=== PATIENT | female | born 1960 | race Caucasian/White ===

== ENCOUNTER 2020-05-29 01:38 | Emergency (ER) | payer OTHER ==
[~2020-05-29] VITALS: Ht 154.9 cm; Wt 68.0 kg
[2020-05-29] MEDS ORDERED: ABILIFY 5 MG TAB5 MG PO (02:11)
[2020-05-29] MEDS ORDERED: ASPIR-TRIN325 MG PO (02:12)
[2020-05-29] MEDS ORDERED: BUSPAR30 MG PO (02:12)
[2020-05-29] MEDS ORDERED: PROZAC20 M1 PO (02:13)
[2020-05-29] MEDS ORDERED: LAMICTAL25 MG PO (02:14)
[2020-05-29] MEDS ORDERED: CLONAZEPAM 0.50.5 M1 PO (02:14)
[2020-05-29] MEDS ORDERED: NEURONTIN 400400 M1 PO ×2 (02:15)
[2020-05-29] MEDS ORDERED: IBUPROFEN 400400 M2 PO (02:15)
[2020-05-29] MEDS ORDERED: NORCO 10-325 T1 EACH PO (02:15)
[2020-05-29] MEDS ORDERED: TRAMADOL 50 MG50 MG PO (02:16)
[2020-05-29] MEDS ORDERED: PROPRANOLOL 1010 MG (02:16)
[2020-05-29] MEDS ORDERED: VISTARIL50 MG PO (02:18)
[2020-05-29 06:38] VITALS: BP 127/105
== END 2020-05-29 06:38 ==
LOC: ER 01:38
DX: R41.0 Disorientation, unspecified (principal); Z20.828 Contact with and (suspected) exposure to other viral communicable diseases; Z79.899 Other long term (current) drug therapy; Z79.82 Long term (current) use of aspirin

== ENCOUNTER 2020-05-29 06:29 | Inpatient (IN) | payer OTHER ==
[~2020-05-29] VITALS: Ht 157.5 cm; Wt 67.1 kg
[~2020-05-29 06:29] MED LIST: ABILIFY 5 MG TAB5 MG PO; ASPIR-TRIN325 MG PO; BUSPAR30 MG PO; CLONAZEPAM 0.50.5 M1 PO; IBUPROFEN 400400 M2 PO; LAMICTAL25 MG PO; NEURONTIN 400400 M1 PO; NORCO 10-325 T1 EACH PO; PROPRANOLOL 1010 MG; PROZAC20 M1 PO; TRAMADOL 50 MG50 MG PO; VISTARIL50 MG PO
[2020-05-29 06:51] VITALS: BP 140/78
--- NOTE | 2020-05-29 06:52 | NUR ---
Patient arrived to the unit from [facility] ED at 0632. Patient alert and oriented x3. Suspicious affect. Denies SI/HI/AH/VH. Patient impulsive, appears confused. Poor short term memory. Oriented to room and unit. Denies pain and discomfort. Vital signs assessed and height/weight. Patient arrived with several trash bags of personal belongings. Patient also has several belongings locked up at [facility]. Patient lived with significant other for several years and most recently in a hotel. Significant other was admitted to [facility] hospital 05/27/20 then to [facility] on 05/28/20. During that time, this patient was [facility] from [facility] and has been homeless. Patient was picked up by PD, wandering along the road, displaying s/s of dementia and delirium on 05/27/20. ATC evaluated patient and recommended inpatient psych. Patient was then sent to [facility] for geriatric psych admission but they did not have bed availability or accept her insurance. Accepted to this unit by HODAN Loza with the diagnosis of Bipolar Disorder with delirium. Patient is a recovering alcoholic and is active in the [facility] program at [facility]. Therapist- Rahul Camarillo, Medication- Graham Galicia, CM- Bernie Colon. Patient reports poor sleep and poor appetite. Patient has a history of breast cancer with double mastectomy, Cluster B personality traits, Bipolar disorder and Alcohol abuse. Regular diet. NKDA. Patient disheveled, foul odor present.
--- NOTE | 2020-05-29 16:17 | NUR ---
PT ARRIVED TO FLOOR WITH SEVERAL LARGE TRASH BAGS OF BELONGINGS. MULTIPLE EMPTY PILL BOTTLES AND SEVERAL FULL PILL BOTTLES IN WITH REMMNENTS OF FOOD-SOME MOLDY-SEVERAL ARTICLES OF MENS CLOTHING IN SIZE EXTRA LATGE-LEIDA DOLLS-JULI ORNAMENTS AN MULTIPLE FACE MASKS,BOOKS ETC. OLD AND ROTTING FOOD THROWN AWAY- MEDS INVENTORIED AND SENT TO PHARMACY-REMAINING BELONGINGS STORED IN GAS WELDER APARTMENT.HAS BEEN RESTLESS PACING-UNABLE TO FIND ROOM/BATHROOM-ASKING REPEATDLY FOR VARIOUS BELONGINGS AND ASKING TO CALL HER FRIEND EVERY 2-3 MINUTES. DID EAT MEALS AND GAIT APPEARS STEADY. DENIES PAIN/DISCOMFORT.
[2020-05-29 20:01] VITALS: BP 133/55
--- NOTE | 2020-05-30 05:16 | NUR ---
Assumed pt's care @ 1900. Pt alert and oriented. Forgetful. Pt was pleasant, calm and cooperative with care. Pt remained in room all through shift. Pt voiced to nursing that she was anxious because she is homeless. Pt voiced that her mom is old and lives with her sister is not fond of pt. Pt voiced she has to figure out what she will do. Nursing encouraged pt to voice concerns to CM and doctor. Pt took meds whole. Pt had HS snacks. Pt slept well this shift. Isela Alonso who voiced to nursing that she was pt's partner called to speak pt. Pt sleeping at the time, Isela informed. Pt continues to sleep well this shift. Will continue to monitor.
[2020-05-30 07:30] VITALS: BP 126/57
[2020-05-30 13:01] LABS: % SATURATION 11 % (20-39); IRON 30 ug/dL (50-170); TIBC 280 ug/dL (250-450)
--- NOTE | 2020-05-30 13:06 | NUR ---
Alert and orientated X3. States she does not know why she is here. Wants help finding someplace to live d/t being homeless. Did not attend groups this AM, sleeping in room. Did come out to dining room for meals. Denies SI/HI. Breath sounds clear. Reg HR auscultated. Color pink with brisk capillary refill and palpable peripheral pulses. Independent with voiding. Active bowel sounds over soft, rounded abdomen. States she had BM yesterday. Ambulates with reg, steady gait. Concerned about missing glasses. Searched room and locker without success. Glasses not documented on inventory.
--- NOTE | 2020-05-30 14:47 | H ---
[facility] [place] [address] HISTORY AND PHYSICAL Name: GLADYS PALACIO Room #: 521B-B ADM IN M.R.#: [id number] Admission: 05/29/20 Attend Phys: Lencho Robles DO Discharge: Date of : 58 Report #: [id number] THIS REPORT FOR: cc: NO FAMILY PHYSICIAN or PCP NO FAMILY PHYSICIAN or PCP Lencho Robles DO ~ CC: Lencho Robles NO PCP DATE OF SERVICE: 05/29/2020 INPATIENT PSYCHIATRIC EVALUATION ATTENDING PSYCHIATRIST: Lencho Robles DO. QUILLER HAND: Dr. Dane Nguyen. REASON FOR ADMISSION: Concern for dementia and self-care failure, found wandering by law enforcement. SOURCES OF INFORMATION: Emergency Room evaluation and behavioral self-assessment from [facility]; interview with the patient, chart review. HISTORY OF PRESENT ILLNESS: This is a 60-year-old female, currently single. The patient was brought to the [facility] on 05/28/2020 by EMS. Apparently, she had been found wandering outside of the [place] [facility]. She went there stating she was homeless. The [facility] staff was trying to find [facility] placement for her. The patient when she was interviewed in the ER reported "I am homeless." States she has been homeless for approximately 1 month. States she has been staying in various hotels, although states she was kicked out of the [employer] approximately 1 week ago. She confirmed that to me. On interview this morning, she cannot state what she has been doing the past week. She reported possibility of dementia diagnosis. She had been living with reportedly a significant other who became ill and believe was placed. She has been engaged in the past with [employer]; reported she takes BuSpar, Prozac, gabapentin and Xanax p.r.n., is unclear if she is compliant with that. In the Emergency Room, she denied pain including chest pain. Also, denied shortness of breath, abdominal pain with fever, cough, congestion, dizziness or syncope. No urinary difficulties. No known PCP. HOME MEDICATIONS: Reported; was Abilify 5 mg p.o. daily, aspirin 325 mg p.o. b.i.d., buspirone 30 mg p.o. b.i.d., fluoxetine 20 mg p.o. daily, Klonopin, Lamictal 25 mg p.o. daily, Neurontin 400 mg p.o. t.i.d., Scotia 5/325 q. 4 p.r.n., propranolol 10 mg p.o. b.i.d., Prozac, trazodone, Vistaril 50 mg p.o. q. [address] [address] HISTORY AND PHYSICAL Name: GLADYS PALACIO Room #: 521B-B ADM IN M.R.#: [id number] Admission: 05/29/20 Attend Phys: Lencho Robles DO Discharge: Date of : 58 Report #: [id number] ALLERGIES: No known allergies. PAST SURGICAL HISTORY: History of open treatment of distal radial intra-articular fracture and her epiphyseal separation with internal fixation of 3 or more fragments on 07/29/2015. Also, history of double mastectomy. MEDICAL PROBLEMS: Known as overweight, BMI 27.3; tendinitis of left hand. Also, history of breast cancer, no chemoradiation. PSYCHIATRIC HISTORY: History of bipolar disorder including periods of alexandru, depression as well as nonspecific anxiety. She reports alcohol problems in the past, but none in recent years. SOCIAL HISTORY: Denied recreational drug use. ADDITIONAL INFORMATION: From Giovana Manzano, crisis crew that saw her: Apparently, the patient told their staff at the [facility] that referring caregiver was in the hospital in [place] wherein states that someone from [facility] contacted [place], [place] and confirmed that the patient's friend was Isela Gilbert, ; was admitted there on 05/27/2020 and discharged to hospice at [facility] on 05/28/2020. She apparently states someone had brief contact with Ms. Gilbert; as stated the patient is in services at [facility]. The [facility] contacted the Mental Health Crisis Line and requested to have the on-call [facility] paged; received a call back from [place] with [facility] confirming this patient is engaged with services with them. [facility] records reflect the patient attends [facility] Program there due to history of alcohol abuse, has a therapist Rahul Camarillo, medication provider Graham Varghese and has received some case management from Adeola Colon. [place] states there is a note from the patient's therapist stating the patient's significant other was ill and there was going to be a meeting with the care team to help the patient finding housing. In the ER, the patient was alert and oriented x 4, anxious, irritable mood, congruent affect. She was perseverating, circumstancing in her thought process. She reported decreased appetite and poor sleep. She was easily frustrated while answering questions. She either states that she does not remember or "I've already answered that." The Crisis Care recommended inpatient psychiatric hospitalization. In the Emergency Room, she is anemic; hemoglobin 11.3, sodium 134, bicarb 20. Alcohol level was negative. Urine drug screen was negative. Seen by Dr. Yin Steven. The patient is her own guardian. Today, the [facility] Mental Status Examination was performed and the patient scored 11/30. Deficits were known and reverse digit span only 2/5 for single item recall, 0/8 on paragraph question, 2/4 on clock drawing. So deficits were diffuse. She does wear glasses, which we are having trouble finding. I believe there was some lab done at [place], which I will review in more detail [facility] [address] [place] [address] HISTORY AND PHYSICAL Name: GLADYS PALACIO Room #: 521B-B ADM IN .R.#: [id number] Admission: 05/29/20 Attend Phys: Lencho Robles DO Discharge: Date of : 58 Report #: [id number] here: Sodium 134, potassium 4.0, chloride 100, bicarbonate 20, anion gap 14, glucose 96, BUN 15, creatinine 1.03. GFR non- is 59, calcium 8.9, osmolality 279. White blood cell count 6.80, H and H 7.3 and 33.3, platelet count is 341. Urinalysis was negative except for small leukocyte esterase and trace amorphous crystals. Negative urine drug screen, serum alcohol less than 10. COVID-19 PCR was negative. Flu A and B and RSV was negative. EKG was done at [facility]. It showed a ventricular rate of 80, RI interval 140 milliseconds, QRS 76 milliseconds, QTc 438 milliseconds, normal sinus rhythm. The patient denied physical, sexual abuse growing up. She reports a bachelor's degree, Juris Doctor degree from [employer]. 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 She states she has been disabled 12 years due to bipolar disorder. I am unclear of her sexual preference, but I will screen further. She was romantically involved with Ms. Gilbert. PHYSICAL EXAMINATION: VITAL SIGNS: Today, temperature 36.7, pulse 87, respirations 18, BP 140/70, O2 sat 98%. MUSCULOSKELETAL: Normal gait and station. MENTAL STATUS EXAMINATION: This is a well-developed, somewhat unkempt female, overweight, appearing stated age. Attention limited. Concentration limited. Speech is normal in rate, volume and tone. Thought process is linear and goal directed. Thought content focused on getting her glasses. She has psychomotor agitation. No psychomotor retardation. She denied suicidality or homicidality. Some helplessness, no hopelessness. Denied auditory, visual, or tactile hallucinations. Memory is impaired formally tested with [facility] Mental Status Examination. Mood and affect congruent, constricted, frustrated and perhaps best labeled. Insight and judgment limited to impaired. Fund of knowledge grossly diminished. FORMULATION: A 60-year-old overweight female brought to medical attention due to being homeless, cognitively impaired and suspected self-care failure, recent placement in hospice of significant other. DIAGNOSES: At this time, major neurocognitive disorder, etiology unspecified without behavioral disturbance. Other morbidities are just historic breast cancer. PLAN: Evaluate, stabilize. The patient will likely need a full dementia workup if not already done. This will include neuroimaging as well as B12, folate, syphilis antibody, vitamin D level. Common evaluation of living skills will be ordered. Consider neuropsychology testing. The patient at present does not have a surrogate decision maker. Everything has panned out as expected and then she meets criteria for memory care; [place] guardianship and conservatorship proceedings will need to be carried out. We [address] [address] HISTORY AND PHYSICAL Name: GLADYS PALACIO Room #: 521B-B ADM IN M.R.#: [id number] Admission: 05/29/20 Attend Phys: Lencho Robles DO Discharge: Date of : 58 Report #: [id number] will try and reach any family that could help out. Time spent on this case is greater than 60 minutes with more than 50% of time on review of records, coordination of care. STRENGTHS: She is insured. WEAKNESSES: Appearing to be demented. Few social resources present. <ELECTRONICALLY SIGNED> By: Lencho Robles DO 05/30/20 [id number] Lencho Robles DO /nt
--- NOTE | 2020-05-30 16:52 | NUR ---
ELÍAS emailed Jeff with [facility] to request mediciad application be completed on the Pt
[2020-05-30 17:00] VITALS: BP 136/65
[2020-05-30 19:46] VITALS: BP 105/61
[2020-05-31 00:06] LABS: HIV ANTIBODY Non Reactive (Non Reactive)
--- NOTE | 2020-05-31 00:34 | NUR ---
PT CARE ASSUMED AT 1900. PT RESTING QUIETLY IN BED IN HER ROOM. V/S STABLE, COMPLETED WITH ASSESSMENT. NO CONCERNS VOICED AND PT DENIES PAIN. A&O TO PERSON AND PLACE BUT HAS SOME FORGETFULNESS. NO DISTRESS NOTED WITH BREATHING. REPORTS HAVING BM A DAY AGO. BOWEL SOUNDS PRESENT. DENIES SI/HI. PT INDEPENDENT WITH ADLS. WILL CTM
[2020-05-31 07:00] VITALS: BP 126/76
[2020-05-31 09:48] VITALS: BP 126/76
--- NOTE | 2020-05-31 11:03 | NUR ---
PT NEEDS PRODDING TO GET UP TO COME TO BREAKFAST BUT EATS WELL.DENIES SI/HI AT THIS TIME.TAKES MEDS WHOLE WITHOUT DIFFICULTY.DENIES DISCOMFORT. ISOLATES TO ROOM AND SKIPS AM GROUP.AT 1030 PT STILL IN BED REQUESTING A SPRITE. SHE IS ENC TO COME TO DR TO DRINK IT SHE CANT DRINK IT IN HER ROOM. PT IS TO BE LIMITED ON PHONE CALLS TO 2 A DAY, SHE ISOLATES IN ROOM REFUSING GROUPS.
[2020-05-31 12:34] LABS: HEMATOCRIT 35.1 % (37.0-47.0); HEMOGLOBIN 11.3 gm/dL (12.0-15.0); MCH 30.4 pg (26.0-34.0); MCHC 32.3 g/dL (28.0-37.0); MCV 94.1 fL (80.0-100.0); RBC 3.74 mil/uL (4.20-5.00); RDW 14.9 % (10.5-14.5); WBC 6.1 thou/uL (4.0-11.0)
[2020-05-31 12:51] LABS: CALCIUM 8.7 mg/dL (8.5-10.1); CREATININE 1.2 mg/dL (0.6-1.0); POTASSIUM 4.8 mmol/L (3.5-5.1)
[2020-05-31 19:37] VITALS: BP 114/59
[2020-05-31 21:05] LABS: SYPHILIS AB Non Reactive (Non Reactive)
--- NOTE | 2020-05-31 22:59 | NUR ---
Care assumed of patient at 1915: Patient reading in bed at start of shift. Calm, pleasant and cooperative. Alert and oriented x3, disoriented on current situation. Forgetful at times. Denies SI/HI/AH/VH. Denies anxiety and depression. Denies pain and discomfort. Education provided regarding needing stool specimen when pt has BM. Patient came to dayroom for HS snack. Ate 100%. Took HS medication whole without difficulty. Significant other called after shift change requesting to speak with patient. Education provided to s/o regarding patient already having 2 phone calls today and she could call in the AM. S/O understanding. Patient was able to fall asleep without difficulty and is resting quietly at this time.
[2020-06-01 08:47] VITALS: BP 120/67
--- NOTE | 2020-06-01 18:14 | NUR ---
PATIENT C/O INCREASED ANXIETY AND REQUESTS PRN MEDICATION. SEROQUEL 12.5MG PO GIVEN
--- NOTE | 2020-06-01 19:32 | NUR ---
Alert and orientated X4. Calm, cooperative and compliant. Denies SI/HI. Up ambulating in unit with regular, steady gait. Breath sounds clear. Reg HR auscultated. Color pink with brisk capillary refill and palpable peripheral pulses. Yellow urine per toilet. Hypoactive bowel sounds over soft, slightly rounded abdomen. Last documented BM was 05/29, milk of magnesium given per PRN order. States she wants to go to [facility] after discharge, referred to SW. Quetiapine given at 1816 for stated anxiety. Currently in room reading without s/o distress.
[2020-06-01 19:45] VITALS: BP 136/65
--- NOTE | 2020-06-01 21:56 | NUR ---
Care of patient assumed at 1914: Patient seated in room, reading a book at start of shift. Patient alert and oriented x3, forgetfulness observed. Poor short term memory observed. Patient has been fussy, making several complaints, sarcastic, rude at times. Patient requested to get into her personal belongings. When asked what she needed, patient stated "Icy Hot". When asked if she was having pain, she stated "lower back". Nurse informed patient that we can get her some Bengay for her lower back. Patient stated "that stuff smells, besides, my back doesn't hurt!". Patient also stated she wants another book from her belongings as well as her glasses. Notified patient that she has personal belongings stored at [facility] as well as this hospital but nurse would look for them. Patient started to ask for a snack at 1914. Patient informed that snack time was at 1944. Patient then approached nurse 2 other occasions before 1944 stating "you told me I could have a snack!". Needed reminders on snack time. At snack time, patient demanding items rather than asking for them. "Get me a diet Ogle!". Education completed on being respectful toward others. Patient provided hospital clothing so her personal clothes could be washed. Patient needed one step directions on removing certain items of clothing and placing on new clothing. Seems to forget what task she is completing in the middle of completing them. Denies SI/HI/AH/VH. Reports feeling anxious due to not being able to see all her belongings. Denies depression. Patient did take HS medication whole without difficulty. Ate 100% HS snack. Patient able to fall asleep at a reasonable time and is resting quietly at this time.
[2020-06-02 05:25] LABS: ABSOLUTE NEUTROPHILS 2.8 thou/uL (1.4-8.2); BASOPHILS 0.7 % (0.0-2.0); EOSINOPHILS 4.1 % (0.0-3.0); HEMATOCRIT 32.9 % (37.0-47.0); HEMOGLOBIN 10.9 gm/dL (12.0-15.0); LYMPHOCYTES 40.5 % (24.0-44.0); MCH 30.6 pg (26.0-34.0); MCHC 33.1 g/dL (28.0-37.0); MCV 92.4 fL (80.0-100.0); MONOCYTES 8.2 % (1.0-8.0); PLATELET COUNT 307 thou/uL (150-400); POLYS 46.5 % (36.0-66.0); RBC 3.56 mil/uL (4.20-5.00); RDW 13.6 % (10.5-14.5)
[2020-06-02 06:08] LABS: ALBUMIN 3.4 g/dL (3.4-5.0); ANION GAP 6 mmol/L (7-16); BUN 14 mg/dL (7-18); CALCIUM 8.9 mg/dL (8.5-10.1); CHLORIDE 106 mmol/L (98-107); CO2 30 mmol/L (21-32); CREATININE 1.1 mg/dL (0.6-1.0); DIRECT BILIRUBIN < 0.1 mg/dL (<0.1-0.2); GLUCOSE 81 mg/dL (74-106); MAGNESIUM 2.4 mg/dL (1.8-2.4); PHOSPHORUS 3.4 mg/dL (2.5-4.9); POTASSIUM 4.5 mmol/L (3.5-5.1); SGOT 15 U/L (15-37); SGPT 14 U/L (30-65); SODIUM 142 mmol/L (136-145); TOTAL BILIRUBIN 0.2 mg/dL (0.2-1.0); TOTAL PROTEIN 6.9 g/dL (6.4-8.2)
[2020-06-02 07:38] VITALS: BP 137/73
[2020-06-02 09:31] VITALS: BP 137/73
--- NOTE | 2020-06-02 12:18 | NUR ---
ACCEPTED CARE OF PT FROM 7P-7A SHIFT.PT IS UP AND DRESSED WITH ASSIST OF ONE STAFF. NEEDS CUEING TO DRESS AND GET ADLS DONE. AMBULATORY TO DINING ROOM TO EAT AND FEEDS SELF AND TAKES MEDS WHOLE. IS A/O TO NAME, NOT PLACE OR TIME. DENIES SI AND/OR HI.AT LUNCH REUESTED MYLANTA FOR HEARTBURN. TALKS WITH STAFF AND PEERS IN
[2020-06-02 18:57] VITALS: BP 113/67
--- NOTE | 2020-06-03 05:32 | NUR ---
Assumed care on 06/02/20 @ 19:15, seated in the day room on a couch watching [employer] football game. Cooperated with assessment, discussed current president and AGNESK's presidency and the anniversary of his . 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 Discussed the science necessary to prepare for that career. Denies SI, HI, AH, VH. positive response to depression. Reports has not had a BM since 05/29, and reports this is her normal. education provided regarding collection of bm for occult blood sample. No verbal agression noted. Did not ask to use phone this evening. Slept well overnight, will continue to monitor for [facility] protocol, for safety and comfort.
[2020-06-03 05:40] VITALS: BP 113/67
--- NOTE | 2020-06-03 06:37 | NUR ---
Slept 8 hours overnight.
[2020-06-03 08:00] VITALS: BP 131/69
[2020-06-03 08:55] VITALS: BP 131/67
[2020-06-03 10:57] VITALS: BP 131/67
--- NOTE | 2020-06-03 11:21 | NUR ---
patient was co-operative with assessment. she ate break fast in the dinning room. patient was pleasant, she had no issues with care being provided to her. she abulate without assisstance. she expressed concern about her living situation after she get discharge from the hospital.
--- NOTE | 2020-06-03 11:52 | NUR ---
SW, Dr. Robles, and pt contacted pt's partner Isela Ofelia who said she contacted [facility] last [place] and asked that they fax over to [facility] a copy of pt's DPOA doc. It has not arrived to this unit as of yet. SW team will continue to follow pt during her stay on this unit.
--- NOTE | 2020-06-03 13:24 | NUR ---
ASSUMED CARE AT 0700 THIS MORNING. PT. IS IRRITABLE, FUSSING WITH ALL STAFF WHEN THEY DON'T LET HIM DO HE WANTS. HE HAS BEEN NOTED TO STEAL FOOD FROM AROUND THE ROOM, ON THE TABLES AND ON OTHER PEERS TRAYS. ONE PT. HAS LEFT HER NUTRITIONAL SUPPLEMENT ON THE TABLE. THE PT. TOOK IT, PALMED AND LEFT FOR HIS ROOM. GARAGE DOOR TO KITCHEN KEPT CLOSED FOR THIS REASON. WHEN ATTEMPTING TO OBTAIN A BLOOD SUGAR FROM HIM, HE CURSED AT THIS RN, GRIPPING ABOUT EVERYTHING THERE IS. HE STATED HE DID NOT NEED IT TAKEN AT LUNCH HE HAD IT TAKEN THIS MORNING. HE WALKES THE HALLS PEERING INTO FEMALE PEERS ROOMS AT THEM. WHEN STAFF APPROACHED HIM, HE STARTED BECOMING BELIGERANT AT THEM AND TELLING THEM TO GO AWAY. TALKED TO DR. TREVIÑO ABOUT WEATHER TO KEEP TIGHT RAIN ON PT. INTAKE OR LET HIM EAT. STATED. WE WOULD LIKE TO SEE THE PT'S BLOOD SUGAR KEPT UNDER 300 BUT WE ARE GOING TO NOT BE ABLE TO REGULATE HIM TIGHTLY HE SNEAKS FOOD AND STEALS FOOD FROM OTHERS.
[2020-06-03 19:36] VITALS: BP 120/68
[2020-06-03 20:40] VITALS: BP 120/68
--- NOTE | 2020-06-04 02:45 | NUR ---
PATIENT STAYED IN ROOM MOST OF EVENING. SHE HAD ONE PHONE CALL. SHE DID COME OUT TO DINING ROOM FOR A LITTLE BIT TO SEE WHAT WAS GOING ON. PATIENT STATES SHE IS ALWAYS DEPRESSED BUT SHE STATES SHE IS NOT SUICIDAL OR HOMICIDAL. SHE DENIES PAIN. SHE AMBULATES WITH A STEADY GAIT. PATIENT TOOK HER MEDS WHOLE WITH WATER. SHE WENT TO SLEEP BY 2100. PATIENT HAS BEEN SLEEPING THRU NIGHT. NO BEHAVIORS. PATIENT STATES SHE HAD A BM TODAY. PATIENT HAS BEEN APPROPRIATE TONIGHT. ROUTINE ROUNDS TO ASSESS SAFETY AND STATUS OF PATIENT.
[2020-06-04 07:42] VITALS: BP 116/77
--- NOTE | 2020-06-04 15:17 | NUR ---
ELÍAS contacted Yara with [employer]. No answer. ELÍAS left a msg. SW team will continue to follow pt during her stay on this unit.
--- NOTE | 2020-06-04 15:39 | NUR ---
VISIBLE IN DAYROOM WATCHING TV OR READING BOOK ON COUCH-AT MEALS. NO NOTED INTERACTION WITH PEER GROUP. FULL RANGE AFFECT. MULTIPLE SMALL REQUESTS FOR A BOOK OUT OF HER BELONGINGS,PHONE TO MAKE A CALL ETC. DOES NEED HELP FINDING HER ROOM AT TIMES
[2020-06-04 19:15] VITALS: BP 137/73
--- NOTE | 2020-06-04 22:40 | NUR ---
Care assumed of patient at 1915: Patient seated in her room, reading book at start of shift. [facility] and have HS snack. Patient interacting well with staff and peers. Alert and oriented to person and place. Disoriented and forgetful this evening. Patient received a phone call and took it to her room. During rounds, patient was observed seated in another peers room/bed. Patient oriented to location, she became frustrated with herself and moved to her own room. Denies pain and discomfort. Denies SI/HI/AH/VH. Denies depression and anxiety. Took HS medication whole without difficulty. Ate 100% HS snack. Not aware of who patient was speaking with on the phone, but it appeared to cause her some agitation and frustration at the end of the phone call. Patient was able to retire to bed at a reasonable hour and is resting quietly at this time.
--- NOTE | 2020-06-05 08:10 | NUR ---
RT Progress Note- During the first few days of Lashonda's admission she was reluctant to participate in both the milieu and recreation groups. This was followed up with a room lockout which she no longer requires specific enforcement of to come to group. Lashonda enjoys talking about books or history, however she does so with a flattened tone. She does state, "I'm just a depressed person, but certain things bring me edna." Lashonda has made progress towards RT goals and staff will continue to encourage further progress and participation.
[2020-06-05 08:30] VITALS: BP 133/70; BP 137/75
--- NOTE | 2020-06-05 08:56 | NUR ---
PT FINISHED EATING BREAKFAST AND WENT BACK TO HER ROOM. PT STATED SHE HAS A HEADACHE LIKE A BAND ACROSS HER FRONTAL LOBE OF 6 ON 1-10 SCALE. PT LUNGS CLEAR. PT STATED LBM 06/03. PT UP AD NADIR.
--- NOTE | 2020-06-05 09:00 | NUR ---
ADM TYLENOL 325MG 2 TABS PO FOR HEADACHE OF 6 ON 1-10 SCALE.
--- NOTE | 2020-06-05 09:00 | NUR ---
PT STATED SHE LIKES MUSIC 60-70'S, SHE SAID SHE HAS A NEW BOOK FROM [facility] THAT IS CALLED [employer] THAT SHE CAN'T FIND AND DIDN'T KNOW IF SHE DIDN'T BRING IT.
--- NOTE | 2020-06-05 11:07 | NUR ---
ELÍAS received information in tx team from that pt currently has Medicaid. ELÍAS contacted Rosana with [facility] [facility] and left a msg with that information. SW team will continue to follow pt during her stay on this unit.
[2020-06-05 11:17] VITALS: BP 137/75
--- NOTE | 2020-06-05 12:15 | NUR ---
ADM ZANAFLEX 2MG PO FOR COMPLAINTS OF PAIN TO LEFT LOWER JAW. PT STATED SHE HAS TMJ AND IT IS HURTING. PT HAS BEEN ATTENDING GROUPS TODAY.
--- NOTE | 2020-06-05 15:26 | NUR ---
PT STATED THAT THE ZANAFLEX DIDN'T HELP AND WANTED TO TAKE THE OTHER HALF OF TABLET. ADM TYLENOL 325MG 2 TABS PO FOR HEADACHE OF 8 ON 1-10 SCALE.
--- NOTE | 2020-06-05 16:41 | NUR ---
PAGED DR. COTTO FOR ANY NEW ORDERS FOR SUBSTITUTION OF SOMA. PT STILL STATED THAT THE ZANAFLEX DIDN'T HELP AND SHE WOULD LIKE SOMA.
--- NOTE | 2020-06-05 16:43 | NUR ---
SHE STATED SHE WANTS CODIENE FOR HER ABSCESS TOOTH, AND SOMETHING FOR RELAXATION.
--- NOTE | 2020-06-05 18:05 | NUR ---
PT ASKING THIS YARN CONDITIONER ABOUT THE MEDICATION. SHE SAID SHE CAN'T TAKE FLEXERIL IT MAKES HER PASS OUT.
--- NOTE | 2020-06-05 18:14 | NUR ---
ADM SEROQUEL 25MG PO FOR ANXIOUS FEELINGS AND TO HELP HER REST.
--- NOTE | 2020-06-05 19:02 | NUR ---
TALKED TO DR. COTTO ABOUT PT CONCERNS ABOUT TMJ ISSUES. SHE RECOMMENDED THAT THE PT TAKES TYLENOL AND SHE WILL ASSESS HER IN AM. GAVE PT A CUP OF WARM WATER WITH SALT TO HAVE HER SWISH AND SPIT OUT.
[2020-06-06] VITALS: BP 126/46
--- NOTE | 2020-06-06 02:06 | NUR ---
Assumed care of patient this pm shift. Patient in good spirits walking the halls and talking with peers. Patient is alert and oriented to self and place. Patient ambulates without assistance. Meds are taken whole with thin fluids. hi/si denied. Assessment shows no signs of acute distress. Vital signs are stable. No comments or concerns from patient at this time. Affect is euthymic. We will continue to monitor per hospital policy.
[2020-06-06 09:27] VITALS: BP 119/68
[2020-06-06 11:02] VITALS: BP 119/68
[2020-06-06 20:23] VITALS: BP 137/72
--- NOTE | 2020-06-07 05:04 | NUR ---
Assumed care of pt @ 1900. Pt calm et cooperative this shift. Took medications whole without difficulty. Pt asked for seroquel et zanaflex PRN with HS meds. Pt was given seroquel but was told that zanaflex could not be given prior to 2300 due to 6 hour time constraint. Pt stated that she would be in bed then but ended up coming to the nurse's station after 2300 for her zanaflex. Ambulates the halls ad winter with steady gait. VSWNL. Health assessment with no abnormalities noted at present time. Denies SI/HI/AVH at present time. Currently resting in bed with eyes closed. Will continue to monitor per unit protocol.
[2020-06-07 08:59] VITALS: BP 137/72
--- NOTE | 2020-06-07 09:28 | NUR ---
0700-ACCEPTED CARE OF PT FROM 7A-7PM SHIFT. PT IS UP,DRESSED, GROOMED. IN DAY ROOM AND REQUESTS SEROQUEL FOR ANXIETY AND PRN FOR NAVEED TREMORS. SEROQUEL IS GIVEN . THE NAVEED MED IS ORDERED FOR 12HRS PRN AND IT IS NOT YET TIME. PT IS ABLE TO TAKE MEDS WHOLE AND FEEDS SELF 100% OF BREAKFAST. IS AWARE OF DISCHARGE TODAY. IS CALM AND SOCIALBLE TALKING WITH STAFF AND PEERS.
[2020-06-07 09:47] VITALS: BP 124/69
[2020-06-07] MEDS ORDERED: IRON325 PO ×2 (11:05)
[2020-06-07] MEDS ORDERED: NEURONTIN600 MG PO ×2 (11:06)
[2020-06-07] MEDS ORDERED: ZANAFLEX4 MG PO ×2 (11:06)
[2020-06-07] MEDS ORDERED: CYMBALTA60 MG PO ×2 (11:07)
[2020-06-07] MEDS ORDERED: TRAZODONE HCL100 MG PO ×2 (11:07)
[2020-06-07] MEDS ORDERED: SEROQUEL 25 MG25 M1 PO ×2 (11:08)
[2020-06-07] MEDS ORDERED: VITAMIN B-12500 MCG PO ×2 (11:08)
[2020-06-07] MEDS ORDERED: PEPCID20 MG PO ×2 (11:08)
[2020-06-07] MEDS ORDERED: VITAMIN D21250 MC1 PO ×2 (11:09)
--- NOTE | 2020-06-07 13:26 | NUR ---
1315 PT DISCHARGED TO [facility] VIA [employer] [facility]. A/0X4. LEFT UNIT PER W/C. REPORT CALLED TO [facility] NURSE PJ. BELONGINGS SENT WITH PT.
--- NOTE | 2020-06-07 13:31 | NUR ---
Pt discharged from unit. No other social work needs
--- NOTE | 2020-06-10 22:22 | D ---
[facility] [address] [place] [address] DISCHARGE SUMMARY Name: GLADYS PALACIO Room #: 521B-B DIS IN M.R.#: [id number] Admission: 05/29/20 Attend Phys: Lencho Robles DO Discharge: 06/07/20 Date of : 58 Report #: [id number] THIS REPORT FOR: cc: NO FAMILY PHYSICIAN or PCP NO FAMILY PHYSICIAN or PCP Lencho Robles DO ~ CC: Lencho Robles NO PCP DATE OF SERVICE: 06/07/2020 INPATIENT PSYCHIATRIC DISCHARGE SUMMARY ATTENDING PSYCHIATRIST: Lencho Robles DO ASSISTED LIVING CARE MANAGER: Dane Nguyen MD DISCHARGE DIAGNOSES: Major neurocognitive disorder, likely due to Alzheimer's disease with behavioral disturbance, improved. Medical comorbidities are as follows: Acute kidney injury; GFR much improved, avoid nephrotoxic agents, encourage oral intake. Anemia; stool for Hemoccult, which was negative. The patient was found to be iron deficient, so she was supplemented with ferrous sulfate. History of bipolar disorder; vitamin D deficiency, level is around 10, so that was replaced this admission; vitamin B12, mild deficiency that was replaced; TMJ issue, Zanaflex prescribed p.r.n. DISCHARGE PLAN: The patient is discharging to the [facility] for ill memory care. Psychiatric and medical care to be provided by that nursing facility. Her partner and DPOA, Isela, is residing at [facility] for rehabilitation, Islea is on hospice for renal failure. DISCHARGE LABORATORY VALUES: Most recent labs from 06/02/2020; H and H is 7.0 and 32.2, white count 6.0, platelet count 307. Otherwise, grossly normal. Most recent chemistries from 06/02/2020; sodium 142, potassium 4.5, chloride 106, bicarbonate 30, anion gap 6, BUN 14, creatinine 1.1, estimated GFR 50, glucose 81, calcium 8.9, phosphorus 3.4, magnesium 2.4, total bilirubin 0.2, direct bilirubin less than 0.1, AST 15, ALT 14, alkaline phosphatase 65, total protein 6.9, albumin 3.4. Vitamin D level 10.2. COVID-19 PCR serology was negative. On 06/06/2020, syphilis serology; nature of IV 1:2 were negative. Further workup for dementia head CT was done, which showed no evidence of intracranial hemorrhage or other acute intracranial pathology, so generally normal head CT. REASON FOR ADMISSION: Back on 05/29/2020, so this is a 60-year-old female who was brought to [facility] on 05/28/2020 by EMS. She was found wandering outside of [place] [facility]. Apparently, she was [facility] [address] [place] [address] DISCHARGE SUMMARY Name: GLADYS PALACIO Room #: 521B-B [facility] IN M.R.#: [id number] Admission: 05/29/20 Attend Phys: Lencho Robles DO Discharge: 06/07/20 Date of : 58 Report #: [id number] homeless and her partner of quite some time had recently been placed in a nursing facility in hospice, also reported to keep that at the [employer] [facility] for a week before being found. HOSPITAL COURSE: The patient was admitted to Geriatric Psychiatry Unit. The patient had a fairly quiescent course. She did dispute her diagnosis of major neurocognitive disorder, believe her [facility] Mental Status exam score was around 11 out of 30. Evidence from clinical observation and later when we did recheck her DPOA corroborated to progressive neurodegenerative picture. Unfortunately, since the patient's partner was placed at [facility], they were interested willing to take her. She did make a report in her DPOA is they felt she had capacity to do that, but not make a more detailed management decisions. CONDITION AT DISCHARGE: Stable. PHYSICAL EXAMINATION: VITAL SIGNS: On the day of discharge are as follows: Temperature 36.6, pulse 86, respirations 18, BP 124/69, O2 sat 96%. MUSCULOSKELETAL: Normal gait and station. MENTAL STATUS EXAMINATION: This is a well-developed, well-nourished female appearing stated age. Attention intact. Concentration intact. Speech is normal rate, volume and tone with persistent and oriented. Thought content focused on discharge. Slight psychomotor agitation. No psychomotor retardation. Denied SI or HI. Denied auditory, visual, or tactile hallucinations. Mood and affect were congruent, a little bit anxious, but appeared to be at her baseline. Insight limited. Judgment limited. Fund of knowledge average range. PROGNOSIS: For this patient is fair to guarded and will be dependent on the progressive however, likely Alzheimer's related dementia. ADDENDUM DISCHARGE MEDICATIONS: Tizanidine 2 mg p.o. q. 12 hours p.r.n. TMJ pain, left sided; ferrous sulfate 325 mg p.o. b.i.d. for supplementation; gabapentin 600 mg p.o. 3 times a day for pain, also mood stabilization; duloxetine 60 mg p.o. daily for depression; trazodone 250 mg p.o. at bedtime for sleep; Seroquel 25 mg p.o. q. 6 hours p.r.n. for anxiety and agitation; famotidine 20 mg p.o. daily [facility] [address] [place] [address] DISCHARGE SUMMARY Name: GLADYS PALACIO Room #: 521B-B DIS IN M.R.#: [id number] Admission: 05/29/20 Attend Phys: Lencho Robles DO Discharge: 06/07/20 Date of : 58 Report #: [id number] for GERD; cyanocobalamin 500 mcg p.o. daily for supplementation; ergocalciferol 50,000 International Units p.o. weekly for supplementation. <ELECTRONICALLY SIGNED> By: Lencho Robles DO 06/10/20 2222 1355 1459 Lencho Robles DO /nt
--- NOTE | 2020-06-10 22:28 | D ---
[facility] [place] [address] [place] [address] DISCHARGE SUMMARY Name: GLADYS PALACIO Room #: 521B-B [facility] IN M.R.#: [id number] Admission: 05/29/20 Attend Phys: Lencho Robles DO Discharge: 06/07/20 Date of : 58 Report #: [id number] THIS REPORT FOR: cc: NO FAMILY PHYSICIAN or PCP NO FAMILY PHYSICIAN or PCP Lencho Robles DO ~ CC: Lencho Robles NO PCP DATE OF SERVICE: 06/07/2020 ADDENDUM DISCHARGE MEDICATIONS: Tizanidine 2 mg p.o. q. 12 hours p.r.n. TMJ pain, left sided; ferrous sulfate 325 mg p.o. b.i.d. for supplementation; gabapentin 600 mg p.o. 3 times a day for pain, also mood stabilization; duloxetine 60 mg p.o. daily for depression; trazodone 250 mg p.o. at bedtime for sleep; Seroquel 25 mg p.o. q. 6 hours p.r.n. for anxiety and agitation; famotidine 20 mg p.o. daily for GERD; cyanocobalamin 500 mcg p.o. daily for supplementation; ergocalciferol 50,000 International Units p.o. weekly for supplementation. <ELECTRONICALLY SIGNED> By: Lencho Robles DO 06/10/20 2228 1409 1447 Lencho Robles DO /nt
== END 2020-06-07 13:33 | DRG 57 ==
LOC: SBH
PROVIDERS: Hospitalist; Internal Medicine; ADMIT Psychiatry & Neurology Psychiatry; ATTEND Psychiatry & Neurology Psychiatry
DX: G30.9 Alzheimer's disease, unspecified (principal); F02.81 Dementia in other diseases classified elsewhere, unspecified severity, with behavioral disturbance; N17.9 Acute kidney failure, unspecified; F01.51 Vascular dementia, unspecified severity, with behavioral disturbance; F31.9 Bipolar disorder, unspecified; Z20.828 Contact with and (suspected) exposure to other viral communicable diseases; D50.9 Iron deficiency anemia, unspecified; E55.9 Vitamin D deficiency, unspecified; E53.8 Deficiency of other specified B group vitamins; F41.9 Anxiety disorder, unspecified
CPT/HCPCS: 10880

== ENCOUNTER 2020-12-10 16:47 | Emergency (ER) | payer OTHER ==
[~2020-12-10] VITALS: Ht 152.4 cm; Wt 99.8 kg
[~2020-12-10 16:47] MED LIST changes: +CYMBALTA60 MG PO; +IRON325 PO; +NEURONTIN600 MG PO; +PEPCID20 MG PO; +SEROQUEL 25 MG25 M1 PO; +TRAZODONE HCL100 MG PO; +VITAMIN B-12500 MCG PO; +VITAMIN D21250 MC1 PO; +ZANAFLEX4 MG PO
[2020-12-10 17:39] VITALS: BP 152/88
== END 2020-12-10 17:40 ==
LOC: ER 16:47
DX: R41.82 Altered mental status, unspecified (principal); Z20.822 Contact with and (suspected) exposure to COVID-19; Z88.8 Allergy status to other drugs, medicaments and biological substances; Z79.899 Other long term (current) drug therapy; Z85.3 Personal history of malignant neoplasm of breast

== ENCOUNTER 2020-12-10 18:15 | Inpatient (IN) | payer OTHER ==
[~2020-12-10] VITALS: Ht 157.5 cm; Wt 72.2 kg
[2020-12-10 18:47] VITALS: BP 148/82
--- NOTE | 2020-12-10 18:50 | NUR ---
Admission from [facility], report received from Dwight(RN) [phone]. Patient went to ER, covid swab done- negative. Patient arrived in the unit at 1746, Dr Robles here in the unit and informed him re: the patient. Charge nurse informed that assistance was needed re: admission since this RN has never done any admissions in this unit. Vital signs taken- with elevated BP noted and Dr Robles aware; rechecked manually- WNL.
[2020-12-10 19:37] VITALS: BP 134/92
[2020-12-10 21:00] VITALS: BP 134/92
--- NOTE | 2020-12-11 04:12 | NUR ---
Assumed care on 12/10/20 @ 19:15, in room, in bed. Uses obscenities to address staff, usually the word fuck added to every sentence. Uncooperative with assessment and intake. VS 134/92 102 18 36.2 100%, 96 hour hold paperwork faxed to [address] [place] [address]. 96 hour hold ends on Wednesday @ 18:42. Patient was in bed with eyes closed when notice of rights was taken to her in her room. When patient was awake in the night, the 96 hour hold was explained to her. Spitting at staff and tearing up admission paperwork. Removed her Hospital ID bracelet off her wrist. Patient repeatedly slams her bedroom door, cusses and spits after 12 minute rounding is done.
[2020-12-11 06:14] LABS: CHOLESTEROL 227 mg/dL (<200); HDL CHOLESTEROL 72 mg/dL (>40); LDL CHOLESTEROL 128 mg/dL (<100); TC:HDL 3.2 Ratio (Not establshd); TRIGLYCERIDE 136 mg/dL (<150); VLDL 27 mg/dL (<40)
[2020-12-11 06:39] LABS: SERUM ASSESSMENT Clear
[2020-12-11 08:00] VITALS: BP 107/74
[2020-12-11 09:00] VITALS: BP 120/59
[2020-12-11 09:04] VITALS: BP 107/74
--- NOTE | 2020-12-11 09:43 | NUR ---
Patient fell around 8:40am when she was walking out of the dinning area, patient got up quickly herself. Vital signs checked, patient head to toe asssesed, no signs of bleeding, no bruising. when asked " do you have pain anywhere?", the patient responded, " fuck you!". sitting on her bed, refused to get out to watch TV with others. asking for something to read, the charge nurse agreed to find something for her.The fall even has been reported to Dr. Ashton through the text on [facility].
--- NOTE | 2020-12-11 12:44 | NUR ---
New admit to [facility] with unspecified pyschosis. Eating 100% of meals. Wt gain ~ 19 lb since last admit 05/2020. Chol levels mild elevation 227, LDL 128, A1C screen is pending. May want to consider add heart healthy diet restriction, otherwise low nutrition risk
[2020-12-11 15:08] LABS: CALCIUM 9.6 mg/dL (8.5-10.1); CREATININE 1.1 mg/dL (0.6-1.0); MAGNESIUM 2.1 mg/dL (1.8-2.4); POTASSIUM 4.6 mmol/L (3.5-5.1)
--- NOTE | 2020-12-11 15:50 | NUR ---
The staff called the mom ), the surpervisor and reported the event.
--- NOTE | 2020-12-11 17:02 | NUR ---
The staff talked to the mom on the phone according to the patient's request: to have the mom pay for her apartment and get her new pair of glasses in the apartment. the mom agreed to call the apartment office to get it taken care of; patient also mentioned she had two storage places, the mom voiced that she had already had them taken care of,asking the staff to ask the patient not to worry about it. The patient stated that she had her apartment ledbetter and a debet card was in the bag in the " store " room on this floor, the franklinrayariel Johnson and Libra checked, three keys in a chain were found, but no any card. After showing the patient the keys, the staff, together with Alex, put the keys back to the patient's belonging bag in the "store" room.
--- NOTE | 2020-12-11 17:38 | NUR ---
The patient wanted the cousin Tino to be her DPOA, but voiced that she could not remember Tino's phone number, asking the staff to contact the mom and let the mom contact Tino. The staff tried to call the mom, didnot get hold of the mom, will pass it on to the night nurse.
[2020-12-11 20:02] VITALS: BP 126/62
--- NOTE | 2020-12-11 23:17 | H ---
[facility] [place] [address] [place] [address] HISTORY AND PHYSICAL Name: GLADYS PALACIO Room #: 522B-B ADM IN M.R.#: [id number] Admission: 12/10/20 Attend Phys: Zehra Robles DO Discharge: Date of : 58 Report #: [id number] THIS REPORT FOR: cc: Portillo Junior MD, Braden MD Kerstein,Zehra Chambers DO ~ DOC #: [id number] ZEHRA Robles DO DATE OF SERVICE: 12/11/2020 INPATIENT PSYCHIATRIC EVALUATION ATTENDING: Zehra Robles DO MEDICAL CONSULTANTS: Michelle Stern and Colt Drummond M.D. and his hospitalist team. REASON FOR ADMISSION: The patient was found disoriented in the [place]. SOURCES OF INFORMATION: Limited records from [facility], interview with the patient. The patient has previously been on the [facility]. Past records. CHIEF COMPLAINT: unsoecified HISTORY OF PRESENT ILLNESS: This is a 60-year-old female who is known to me from previous admission on the [facility] in 05/2020. The patient was diagnosed with an early Alzheimer's dementia and neurocognitive disorder. At that point, she was discharged to the [facility]. The patient is a lesbian, and at that time, her partner was residing in that facility. Tragically, her partner this August. Her partner was her DPOA. The patient was without a DPOA and as best I can tell, she wanted to leave the [facility] and she was discharged. She states about a month ago she established a rental apartment in the [facility]. The patient cannot tell me how she ended up in this ramirez. She is amnestic to this. This is not a new phenomenon for her. The patient swears that she has not been drinking alcohol. She has a significant history of alcoholism. 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 The patient has a 96-year-old mother, who is alive and a sister, I believe her sister lives with her mother. It sounds like she gets along with her sister more than her mother. In any event, the patient states she has not had specific psychiatric followup since August or early September when she left [facility]. She does endorse taking psychiatric medications like duloxetine and gabapentin. My H and P on her from the fall detailed at [facility] [address] [place] [address] HISTORY AND PHYSICAL Name: GLADYS PALACIO Room #: 522B-B ADM IN M.R.#: [id number] Admission: 12/10/20 Attend Phys: Zehra Robles DO Discharge: Date of : 58 Report #: [id number] that time, she had been brought to [facility]. She had been found wandering outside of the [place] [facility], so not unlike the present circumstances. In fact, at that time, she had been kicked out of [employer]. ALLERGIES: The patient has no known allergies. PAST SURGICAL HISTORY: Open reduction and internal fixation of distal radius fracture. Also, history of double mastectomy. She states she had around 2008. Medical problems have included being overweight in the past. Tendinitis of the left hand. Breast cancer; no chemoradiation. PSYCHIATRIC HISTORY: History of bipolar disorder, periods of alexandru and depression, nonspecific anxiety. History of alcoholism. SOCIAL HISTORY: Denies drinking at least since 05/2020. Denies recreational drug use otherwise. The patient has had past mental health treatment with [facility]. LABORATORY DATA: Hematology and chemistries were ordered for today as well as A1c; not received yet. Her triglycerides 136, total cholesterol 227, LDL 128. Vitamin D has also not received. COVID-19 serology was negative. I do not have access to her labs at the moment from [facility] and I will make a point upon reviewing them. PHYSICAL EXAMINATION: VITAL SIGNS: Today, temperature 36.4, pulse 102, respirations 20, BP 107/74, O2 sat 99%. MUSCULOSKELETAL: Normal gait and station. GENERAL: The patient is unkempt. MENTAL STATUS EXAMINATION: This is a well-developed, somewhat ill-appearing female. Attention intact. Concentration limited. Speech normal rate, volume, and tone. Thought process: Linear and goal directed. Thought content: not being in the hospital. The patient initially had some profanities she used towards me, and we redirected her thoughts a bit. Mood, affect restricted, dysphoric, congruent. Denied suicidal or homicidal ideation, auditory, visual, or tactile hallucinations. Memory noted to be impaired. Insight is impaired, judgment is impaired. Fund of knowledge average, but below premorbid state. FORMULATION: A 60-year-old female sent to us from [facility]. The patient is under 96-hour hold. Drew Wyman, the public records officer, visited with her today. I did not plan on pursuing a 121-day petition. However, the patient will need to assist with coming up with the [facility] and [facility] [address] [place] [address] HISTORY AND PHYSICAL Name: GLADYS PALACIO Room #: 522B-B ADM IN M.R.#: [id number] Admission: 12/10/20 Attend Phys: Zehra Robles DO Discharge: Date of : 58 Report #: [id number] getting herself placed in assisted living. If not, she will force the guardianship conservatorship situation. This was discussed with the patient as well as a public records officer. So at this time, an involuntary admission to [facility] at [facility] to evaluate, stabilize. We will check lab work that was not done at [facility]. Regarding her medications, continue famotidine 20 mg daily, continue duloxetine 60 mg daily, continue cyanocobalamin 500 mcg oral daily, start on Seroquel 25 mg oral 3 times a day. For anxiety and impulse control, we will continue her on gabapentin 300 mg oral 3 times a day. Otherwise, house PRNs. The patient requested I discontinue her iron due to GI symptoms it gives her. ESTIMATED LENGTH OF STAY: At least 14 days. Time spent on this case is greater than 60 minutes, greater than 50% time spent reviewing records and coordination of care. STRENGTHS: She has insurance including Medicaid, some family involvement. WEAKNESSES: Early dementia, history of combined mental health, substance use issues, poor social support. DO GHADA Spence/MALIK/AJ <ELECTRONICALLY SIGNED> By: Zehra Robles DO 12/11/20 2317 [id number] 1534 Zehra Robles, /nt
[2020-12-12 01:06] LABS: GLYCOHEMOGLOBIN (HGB A1C) 5.3 % (4.8-5.6)
--- NOTE | 2020-12-12 01:58 | NUR ---
ASSUMED CARE OF MS. PALACIO 12/11/2020 AT 1900. SHE WAS IN THE DAYROOM WATCHING TELEVISION, SITTING AWAY FROM OTHER RESIDENTS. SHE IN AWAKE, ALERT AND ORIENT TO PERSON AND PLACE. SKIN WARM AND DRY, LUNGS CTA, HEART RRR, ABD SOFT BS +. DENIES ANY SI/HI OR AVH. PATIENT IS QUESTIONING OF WHY MEDICATION DOSES ARE SO LOW, BUT COMPLIANT WITH TAKING MEDICATIONS. STAFF WILL CONTINUE TO MONITOR PER [facility] PROTOCOL.
[2020-12-12 07:48] LABS: HEMATOCRIT 37.4 % (37.0-47.0); HEMOGLOBIN 12.5 gm/dL (12.0-15.0); MCH 31.5 pg (26.0-34.0); MCHC 33.5 g/dL (28.0-37.0); MCV 94.1 fL (80.0-100.0); RBC 3.97 mil/uL (4.20-5.00); RDW 15.1 % (10.5-14.5); WBC 8.7 thou/uL (4.0-11.0)
[2020-12-12 08:45] VITALS: BP 127/69
--- NOTE | 2020-12-12 12:20 | NUR ---
WITHDRAWN TO ROOM MAJORITY OF AM-DID COME OUT BRIEFLY AND ATE BREAKFAST BEFORE RETURNING TO ROOM WITH C/O HEADACHE-REFUSED 1;1 INTERACTION WITH NURSING STAFF AND PHYSICAL ASSESSMENT STATING "I DON'T HAVE ANYTHING TO SAY-I SHOULDN'T BE HERE AND I WON'T BE FOR LONG" DYSPHORIC MOOD-DENIES SI/SH/HI. DOES REPORT FEELING ANXIOUS R/T BEING HERE "YOU WOULD BE TOO IF YOU WERE STUCK HERE"GAIT STEADY WITHOUT ASSISTVE DEVICES. DOES REPORT MILD RELIEF OF MILLER WITH USE OF TYLENOL DROPPING PAIN SCALE FROM 6 TO A FOUR.
[2020-12-12 19:31] VITALS: BP 98/74
[2020-12-12 20:00] VITALS: BP 98/74
--- NOTE | 2020-12-13 02:13 | NUR ---
PT CARE WAS RESUMED AT 1900. SHE IS ALERT AND ORIENTED AND ABLE TO VERBALIZED NEED. PT DENIES ANY DISCOMFORT ,SI/AVH/HI. SHE IS CONTINET OF BOWEL AND BLADDER. CALM AND PLEASANT. LUNGS ARE CLEAR, BS ACTIVE X4 QUADS, ABD IS SOFT , FLAT AND NON TENDER. MEDICATION GIVEN WITHOUT ANY ISSUES AND SHE SWALLOWED MED WHOLE. PT AMBULATES, SHE DENIES ASSISATNCE WITH PERICARE. BED IS LOW, LOCK, ALARM IN PLACE, Q 12MINUTES CHECKS ARE ONGOING.PT IS RESING CALM IN BED. CONT CARE AND MONITOR.
[2020-12-13 09:55] VITALS: BP 139/59
[2020-12-13 10:32] VITALS: BP 139/59
--- NOTE | 2020-12-13 10:49 | NUR ---
Assumed pt care at 0700. pt was alert and oriented x4. PT REFUSED SKIN ASSESSMENTS. TOOK HER MEDS WHOLE NO DIFFICULTY NOTED. AMBULATES WITH A STEADY GAIT. INAPPROPRIATE USING CURSE WORDS ON WRITTER DURING ASSESSMENST. PT WAS ASKED IF SHE HAD ANY THOUGHT OF HARMING HER SELF. pT RESPOND " I HAVE THOUGHT OF HURTING ACCOUNT SUPPORT SPECIALIST, IF ACCOUNT SUPPORT SPECIALIST DO NOT GET THE FUCK OUT OF HER FACE JERK ARSE. PT CONTINUE RENDERING ABUSIVE WORDS.pt denies pain. At this time pt is in her room. will continue to monitor.
[2020-12-13 19:46] VITALS: BP 135/84
--- NOTE | 2020-12-14 00:48 | NUR ---
ASSUMED CARE OF PATIENT AT 1900, PATIENT SITTING IN DAY AREA WATCHING TV AT THAT TIME. PATIENT COMPLIANT WITH MEDS, TAKEN WHOLE WITHOUT DIFFICULTY. NO CONCERNS VOICED. PLEASANT THIS EVENING. WILL CONTINUE TO MONITOR.
[2020-12-14 07:32] VITALS: BP 124/72
--- NOTE | 2020-12-14 17:51 | NUR ---
VISIBLE IN DAYROOM MAJORITY OF SHIFT-DID REFUSE GROUPS GETS UP FROM TABLE ABRUPTLY WHEN GROUP STARTS AND GOES TO ROOM-RESISITVE WITH NURSING STAFF ATTEMPTS TOENCOURAGE PARTICIPATION-UNABLE TO OFFER REASON WHY REFUSING SIMPLY STATES "I DON'T WANT TO" AND DOES NOT ELOBORATE. MULTIPLE NEGATIVE COMMENTS ABOUT UNIT RULES,FOOD,TV,ETC. DENIES SI/SH/HI. DENIES PAIN/DISCOMFORT. APPETITE GOOD-STATES SLEEPING"PRETTY GOOD" CARETAKING OF FEMALE PEER ON UNIT. COMPLIENT WITH TAKING MEDS PRESCRIBED
[2020-12-14 19:57] VITALS: BP 128/85
--- NOTE | 2020-12-15 06:20 | NUR ---
12-14-20 CARE TRANSFERRED 1900 OBSERVED PT SITTING IN DAY ROOM. LATER PT AAOX4, VSS, RR EVEN AND NONLABORED ON RA. PT DENIES SI/HI AND REPORTS GENERALIZED BODY PAIN AND PAIN MANAGED WITH MEDICATION. PT PRESENTS PLEASANT, CALM AND COOPERATIVE. ZERO S/S OF ACUTE DISTRESS NOTED, PT WILL CONTINUE TO BE MONITOR PER [facility] PROTOCOL.
--- NOTE | 2020-12-15 11:56 | NUR ---
REPORTS INCREASED ANXIETY R/T PROBABLE DC TOMORROW-STATES SHE IS NOT WILLING TO SIGN IN AND 96 HR HOLD IS UP TOMORROW PM. REPORTS ANXIETY R/T LIVING ARRANGEMENT AT TIME OF DC-"THEY TOLD ME I NEED SOMEONE TO LIVE WITH ME TO TAKE CARE OF ME AND I DONT HAVE ANYONE" DID ATTEND PM SW GROUP YESTERDAY AND STATES SHE ENJOYED IT BUT AGAIN THIS AM REFUSED RT GROUP AFTER BREAKFAST WITH REPORTS OF NOT SLEEPING WELL LAST PM R/T INCREASED ANXIETY. COMPLIENT WITH MEDS-DENIES SI/SH/HI. GAIT IS STEADY WITHOUT ASSISTIVE DEVICES. INDEPENDENT IN ALL ADLS. STRUCTURES FREE TIME IN DAYROOM COLORING OR READING NEWSPAPER.
--- NOTE | 2020-12-15 17:12 | NUR ---
Patient inquired about her discharge tomorrow stating her 96 hr hold will end tomorrow. ELÍAS informed this question would need to be discussed with Dr. Robles. ELÍAS told her I would get back with her after speaking to Dr. Robles. Patient satisfied with this response. SW team will remain available.
[2020-12-15 19:30] VITALS: BP 118/67
--- NOTE | 2020-12-16 02:41 | NUR ---
12-15-20 CARE TRANSFERRED 1900 OBSERVED PT SITTING IN DAY ROOM. LATER PT AAOX4, VSS, RR EVEN AND NONLABORED ON RA, PT DENIES PAIN AND SI/HI. PT PRESENTS CALM AND COOPERATIVE. DURING MEDICATION ADMIN PT REPORTS GENERALIZED PAIN AND SCORES AT A 5, PRN MEDICATION ADMIN. UPON REASSESSMENT NOTED PT RESTING WITH EYES CLOSED IN BED. ZERO S/S OF ACUTE DISTRESS NOTED, PT WILL CONTINUE TO BE MONITOR PER [facility] PROTOCOL.
[2020-12-16 08:42] VITALS: BP 115/69
--- NOTE | 2020-12-16 09:13 | NUR ---
0700 ASSUMED CARE OF PATIENT, PATIENT AWAKE IN ROOM. PATIENT AMB WITH STEADY GAIT. AFTER BREAKFAST PATIENT RETURNS TO ROOM. FIRE CONTROLMAN TO ROOM, PATIENT LYING IN BED. MEDICATIONS TAKEN WHOLE WITHOUT DIFFICULTY. PATIENT LS CLEAR, BS ACTIVE. NO C/O PAIN. PATIENT STATES "I WILL BE LEAVING TODAY THIS EVENING OR IN AM" "MY 96 HRS ARE OVER". VS WNL. SITS IN BACK OF ROOM DURING GROUP, STATING "I NEVER PARTICIPATE IN GROUPS". AWAKE AND ALERT X4. DENIES NEEDS.
--- NOTE | 2020-12-16 16:04 | NUR ---
ELÍAS attempted to schedule a follow up appt with PCP Dr. Junior [phone]. Dr. Junior's office informed ELÍAS Junior has limited availability due to an upcoming vacation and her nurse would be working patients into her schedule on an as needed basis. I was transferred to a voice mail and left a message about scheduling an appointment. When ELÍAS told patient, she said she did not want to see Dr. Junior any longer and was going to find another doctor. ELÍAS informed patient would have to do that on her own but we were working on getting her scheduled with Dr. Junior. ELÍAS also attempted to schedule an appointment with 's psychiatrist with [facility] [phone]. ELÍAS left a voice message asking for a return call to schedule a psychiatry appointment for patient. SW team will remain available.
[2020-12-16 20:31] VITALS: BP 127/73
--- NOTE | 2020-12-17 02:38 | NUR ---
ASSUMED PT CARE AT 1900. PT IN DAYROOM SITTING IN CHAIR WATCHING TV. SHE APPEARS WELL GROOMED AND IS DRESSED APPROPRAITE. SHE PRESENTS WITH A FULL AFFECT AND DESCRIBES HER MOOD "ON A GOOD LEVEL". PT IS ALERT AND OREITNED X 4. HER PHYSICAL ASSESSMENT IS WNL, ACITVE BOWEL SOUNDS, ABD SOFT, LUNGS CLEAR, HEART S1S2 NORMAL RATE AND RYHTM. VITAL SIGNS BP- 118/67, P-95, R-18, T-98.1, AND 02-98%. PT IS MEDICATION COMPLIANT AND DENIES ANY PAIN AT THIS TIME. SHE DID COMPLAIN OF SOME INDIGESTION AND WAS GIVEN PRN MALAAOX WHICH WAS EFFECTIVE. PT CONTINENT AND AMBULATES WITH A STEADY GAIT. PT VERBALIZES THAT SHE IS EXCITED TO GO HOME IN THE MORNING. PT SCHEDULED TO DISCHARGE TO HOME VIA [facility] AT 12PM. PT WATCHED TV WITH PEERS UNTIL 2200 AND THEN SHE RETIRES TO HER ROOM FOR THE NIGHT. WILL CONTIUE TO MONITOR AND FOLLOW PLAN OF CARE. PT CONTINUES TO BE ON 12 MINUTE CHECKS PER PROTOCOL.
[2020-12-17 09:25] VITALS: BP 115/77
[2020-12-17] MEDS ORDERED: NEURONTIN 300M300 M2 PO (09:42)
[2020-12-17] MEDS ORDERED: CYMBALTA60 MG PO (09:43)
[2020-12-17] MEDS ORDERED: TRAZODONE HCL100 MG PO (09:45)
[2020-12-17] MEDS ORDERED: VITAMIN D3125 MC1 PO (09:46)
[2020-12-17] MEDS ORDERED: CALTRATE-600 W1 EACH PO (09:46)
[2020-12-17 11:26] VITALS: BP 115/77
--- NOTE | 2020-12-17 12:14 | NUR ---
Pt has the following follow up appointments PCP- Dr. Portillo Junior 12/24/2020 @1445 Psychiatry- Dr. Nuñez 01/14/2021 @1300 A referral for case management and discharge information was faxed to [facility] at [phone]
--- NOTE | 2020-12-17 12:32 | NUR ---
DISCHARGE INSTRUCTIONS REVIEWED WITH PATIENT INCLUDING FOLLOW UP RECCOMENDATIONS-MEDICATIONS AT TIME OF DC AND WHEN TO SEEK EMERGENCY ASISTANCE. DENIES SI/SH/HI. NO NOTED OR REPORTED PSYCHOSIS OR ACUTE ANXIETY. DENIES C/O PHYSICAL PAIN. STATES UNDERSTANDING OF DC INSTRUCTIONS AND REPORTS FEELING EAGER TO GO HOME. LEFT UNIT VIA WC ACCOMPNIED BY NURSING STAFF AT 1245 TO ZHANE LOCO PLAN TO RETURN TO APARTMENT.
--- NOTE | 2020-12-18 22:44 | D ---
[facility] [place] [address] DISCHARGE SUMMARY Name: GLADYS PALACIO Room #: 522B-B [facility] IN M.R.#: [id number] Admission: 12/10/20 Attend Phys: Zehra Robles DO Discharge: 12/17/20 Date of : 58 Report #: [id number] THIS REPORT FOR: cc: Portillo Junior MD, Braden MD Kerstein,Zehra Chambers DO ~ DOC #: [id number] ZEHRA Robles DO INPATIENT PSYCHIATRIC DISCHARGE SUMMARY ATTENDING PSYCHIATRIST: Zehra Robles DO MEDICAL ASSEMBLER: Colt Drummond M.D. DISCHARGE DIAGNOSES: Major neurocognitive disorder, likely multifactorial with behavioral disturbance, improved. Psychiatric comorbidities including history of substance use disorder for alcohol moderate to severe degree, history of multiple relapses, additional medical comorbidities include anemia, vitamin D, B12 deficiency. The patient is a nonsmoker and at this point sober from alcohol. DIET: Diabetic 2000 calorie diet. ACTIVITY LEVEL: As tolerated. No alcohol, no smoking. No illicit drugs. DISCHARGE MEDICATION: List is as follows: Famotidine 20 mg oral daily for GERD, cyanocobalamin 500 mcg oral daily for supplementation, gabapentin 300 mg oral 3 times daily for neuropathic pain and alcohol relapse prevention, duloxetine 60 mg oral daily for pain and depression, trazodone 150 mg oral p.r.n. for sleep, calcium carbonate with vitamin D3 500 mg oral 3 times a day, 5000 international units oral daily of vitamin D. The patient was given crisis hotline information. Aftercare arranged by dialysis social worker is as follows, seeing Dr. Portillo Junior 12/24/2020 at 1445, that is primary care appointment, psychiatry appointment at [facility], Dr. Francisco 01/14/2021 at 1300. Referral for case management and discharge information was faxed to [facility] at [phone]. Significant laboratories this admission, the patient was received from [facility], so more labs were done there. On 12/12, white count 8.7, H and H 12.5 and 37.4, platelet count 366. Chemistries: Sodium 140, potassium 4.6, chloride 103, bicarbonate 28, anion gap 9, BUN 16, creatinine 1.1, estimated GFR 50. Estimated average glucose 105. Hemoglobin A1c 5.3, calcium 9.6, magnesium 2.1. Triglycerides 136, total cholesterol 227, LDL 128, vitamin D level of 31.9 borderline low, HDL 72. Microbiology this admission, there was none. [facility] [address] [place] [address] DISCHARGE SUMMARY Name: GLADYS PALACIO Room #: 522B-B [facility] IN M.R.#: [id number] Admission: 12/10/20 Attend Phys: Zehra Robles, DO Discharge: 12/17/20 Date of : 58 Report #: [id number] REASON FOR ADMISSION: Back on 12/10, a 60-year-old female known to us from previous psychiatric admission referred from [facility] for bizarre behavior. She was found disheveled in a ramirez, so was brought in the ER by authorities. HOSPITAL COURSE: The patient was admitted to Geriatric Psychiatry Unit. The patient did admit to alcohol relapse consumption, so this explained her being found in the ramirez. The patient has had a personal tragedy in the last 6 months with partner, in August, she was actually placed from her previous admission in 05/2020 to [facility] for reasons unknown. She was allowed to leave there, even though she has dementia. Unfortunately, the patient has no DPOA. We made telephone call to her mother and she is unwilling to be her DPOA. She has a sister. She is estranged with no viable DPOA and the patient functioning relatively well. We were left with a discharge back to the apartment she has arranged for herself this winter. CONDITION AT DISCHARGE: Stable. No SI, no HI. PHYSICAL EXAMINATION: VITAL SIGNS: On day of discharge, temperature 36.0, pulse 78, respirations 18, BP 115/77, O2 sat 97%. MUSCULOSKELETAL: Normal gait and station. Wearing glasses. Still well-developed female appearing slightly older than stated age. Attention limited. Concentration limited. Speech normal rate, rhythm and tone. Thought process: Linear and goal directed. Thought content: Focused on discharge. No SI, AHI no auditory, visual, or tactile hallucinations. Mood and affect was congruent, euthymic. Memory not formally tested, known to be impaired. Insight limited. Judgement fair. Limited fund of knowledge at least average. Prognosis for this patient is guarded due to very limited social support having a neurodegenerative disorder. Absolute abstinence from alcohol, smoking and recreational drugs is essential to keeping her dementia from worsening. ZEHRA Robles DO AHK/AMI/UPE <ELECTRONICALLY SIGNED> By: Zehra Robles DO 12/18/20 2244 [id number] Zehra Robles DO /nt
== END 2020-12-17 12:46 | disposition home or self-care (01) | DRG 57 ==
LOC: SBH 18:15
PROVIDERS: Internal Medicine; ADMIT Psychiatry & Neurology Psychiatry; ATTEND Psychiatry & Neurology Psychiatry
DX: G30.0 Alzheimer's disease with early onset (principal); F01.51 Vascular dementia, unspecified severity, with behavioral disturbance; F23 Brief psychotic disorder; F02.81 Dementia in other diseases classified elsewhere, unspecified severity, with behavioral disturbance; D64.9 Anemia, unspecified; E55.9 Vitamin D deficiency, unspecified; E53.8 Deficiency of other specified B group vitamins; K21.9 Gastro-esophageal reflux disease without esophagitis; G62.9 Polyneuropathy, unspecified; F31.9 Bipolar disorder, unspecified; F41.9 Anxiety disorder, unspecified; Z88.8 Allergy status to other drugs, medicaments and biological substances; Z79.899 Other long term (current) drug therapy; Z90.13 Acquired absence of bilateral breasts and nipples; Z85.3 Personal history of malignant neoplasm of breast
CPT/HCPCS: 10880